=== PATIENT | female | born 1960 | race Caucasian/White ===

== ENCOUNTER 2023-05-01 15:12 | Outpatient (CLI) | payer BC, SELFPAY ==
--- NOTE | 2023-05-01 15:30 | CRLHL7_ITS ---
For Patients: As a result of the Century Cures Act, medical imaging exams and procedure reports are released immediately into your electronic medical record. You may view this report before your referring provider. If you have questions, please contact your health care provider. DXA BONE MINERAL DENSITY STUDY Reason for exam: Encounter for general adult medical examination. Current height (in): 65. Weight (lb): 175. Menopause age: 48. Ethnicity: White. 1. Have you had a previous hip or vertebral fracture? No. 2. Have you had any fractures during your adult life which did not result from significant trauma (e.g., auto accident)? No. 3. Did either of your parents have a hip fracture? No. 4. Do you smoke? No. 5. Have you ever taken Glucocorticoids? Yes. 6. Do you have rheumatoid arthritis? No. 7. Do you have secondary osteoporosis? No. 8. Do you drink 3 or more alcoholic drinks per day? No. 9. Are you being treated for osteoporosis? No. 10. Have you ever taken any of the following medications: Actonel, Evista, Fosamax, Miacalcin, Reclast, Boniva, Forteo, HRT (i.e., estrogen/hormone therapy), Protelos, Prolia, Vitamin D, Calcium, other ??? please specify. ANSWER: Yes, vitamin D and calcium. 11. Do you have any of the following medical conditions: Anorexia or bulimia, asthma or emphysema, end stage renal disease, hyperparathyroidism, any seizure disorders, cancer, inflammatory bowel diseases, hysterectomy, other ??? please specify. ANSWER: No. 12. What was your maximum height (inches)? 67. 13. Do you perform weight bearing exercise regularly? No. 14. Do you regularly consume dairy products? No. 15. Do you drink caffeinated beverages? Yes. If female: 16. At what age did your period start? 11. 17. Are you premenopausal? No. 18. How many full-term pregnancies have you had? 2. 19. Have you ever missed your period for more than 6 months in a row (not including or menopause)? No. TECHNIQUE: Bone mineral density study was performed using the [employer]. FINDINGS: The results of the study expressed as bone mineral density (BMD) are as follows: Lumbar spine L1 to L4: BMD: 1.225 g/cm2. T-score: 1.6. Z-score: 3.4 Neck Left: BMD: 0.965 g/cm2. T-score: 1.0. Z-score: 2.5 Right: BMD: 1.003 g/cm2. T-score: 1.4. Z-score: 2.9 Total Left: BMD: 1.188 g/cm2. T-score: 2.0. Z-score: 3.2 Right: BMD: 1.197 g/cm2. T-score: 2.1. Z-score: 3.3 IMPRESSION: Normal bone density. *Comparison exams done prior to 04/2020 were performed on different unit, SEVENROOMS. COMPARISON: Compared with scan of 10/13/2017, the bone mineral density has decreased by 0.4 percent at the spine and decreased by 0.5 percent at the hip. Brett Carroll M.D. Diagnostic Radiologist [email or web address] NATALIA/sherman whitaker/Dictated by: Brett Carroll MD @ 05/02/2023 6:50:00 AM (Electronically Signed)
== END 2023-05-01 15:13 | disposition home or self-care (01) ==
LOC: RAD 15:12
PROVIDERS: PCP Physician Assistant Medical; Visit Provider Physician Assistant Medical
DX: Z13.820 Encounter for screening for osteoporosis (principal); Z78.0 Asymptomatic menopausal state
CPT/HCPCS: 77080

== ENCOUNTER 2023-05-21 08:10 | Outpatient (CLI) | payer BC, SELFPAY ==
--- NOTE | 2023-05-21 08:15 | CRLHL7_ITS ---
For Patients: As a result of the Century Cures Act, medical imaging exams and procedure reports are released immediately into your electronic medical record. You may view this report before your referring provider. If you have questions, please contact your health care provider. BILATERAL SCREENING MAMMOGRAM WITH COMPUTER-AIDED DETECTION AND TOMOSYNTHESIS TECHNIQUE: CC and MLO views were obtained. These mammographic images have been obtained using full-field digital technique. These mammographic images were interpreted with the benefit of computer-aided detection. Breast tomosynthesis was used in this interpretation. COMPARISON FILM: 11/14/21, 07/07/20, 11/27/18. FINDINGS: The breasts are heterogeneously dense, which may obscure small masses. IMPRESSION: There is no radiographic evidence for malignancy. ASSESSMENT: BI-RADS Category 1: Negative RECOMMENDATION: Routine screening mammogram in 1 year. A lay language report of this examination will be provided to the patient. BRETT BARRIOS M.D. Diagnostic Radiologist [email or web address] NATALIA/lluvia Transcribed: 05/21/2023, 2:[address]/Dictated by: Brett Barrios MD @ 05/21/2023 9:32:00 AM (Electronically Signed)
== END 2023-05-21 08:11 | disposition home or self-care (01) ==
LOC: MAMMO 08:11
PROVIDERS: PCP Physician Assistant Medical; Visit Provider Physician Assistant Medical
DX: Z12.31 Encounter for screening mammogram for malignant neoplasm of breast (principal); R92.2 Inconclusive mammogram
CPT/HCPCS: 77063; 77067

== ENCOUNTER 2023-07-08 08:24 | Outpatient (CLI) | payer BC, SELFPAY ==
--- OUTSIDE RECORDS SUMMARY | 2023-07-10 09:36 | XMS_ITS | Continuity of Care Document ---
Author Name Unknown Organization [facility] Address [address] [place] [address] Phone Care Team Providers Care Commonwealth Attorney Name Role Phone Félix Kinney MD Unavailable Unavailable Allergies, Adverse Reactions, Alerts Substance Reaction Status Criticality Sulfa (Sulfonamide Antibiotics) Active No Information Penicillins Active No Information Medications Medication Instructions Dosage Effective Dates (start - stop) Status Comments lisinopril 20 mg-hydrochlorothiazi de 25 mg tablet take 1 Tablet by oral route every day 1 Tablet - Active escitalopram 20 mg tablet take 1 tablet by oral route every day 20 MG - Active bupropion HCl SR 200 mg tablet,12 hr sustained-release take 1 tablet by oral route every day 200 MG - Active metformin 500 mg tablet take 1 tablet by oral route 2 times every day with morning and evening meals 500 MG - Active atorvastatin 40 mg tablet take 1 tablet by oral route every day 40 MG - Active Vitamin D3 50 mcg (2,000 unit) capsule take 1 Capsule by Oral route once 1 Capsule - Active Fish Oil 1,200 mg (144 mg-216 mg) capsule - Active Aspirin Low Dose 81 mg tablet,delayed release take 1 tablet by oral route every day 81 MG - Active trazodone 50 mg tablet take 1 tablet by oral route every day after meals 50 MG - Active Basaglar KwikPen U-100 Insulin 100 unit/mL (3 mL) subcutaneous inject by subcutaneous route as per insulin protocol 0.00 - Active Multivitamin 50 Plus tablet spray 1 Tablet by Oral route every day 1 Tablet - Active Systane (PF) 0.4 %-0.3 % eye drops in a dropperette apply 1 Drop by Ophthalmic route in each eye every 2-3 hours 1 Drop - Active Systane Gel 0.3 % eye gel - Active FLOVENT HFA (unknown strength) inhale 1 puff by inhalation route 2 times every day Not Available - Active Problems Condition Type Effective Dates (start - stop) Clini rosie Status Comments No Known Problems Procedures Procedure Date Office/Outpatient Visit, New Routine Venipuncture Specimen Handling Rbc Sed Rate, Nonautomated CReactive Protein Antinuclear Antibodies Records Request Results Test Name Date and Time Measure Units Reference Range Abnormal Flag Status Comments Panel Description: CRP Final CRP 16:10:00 0.15 MG/DL 0.00-0.60 Final Panel Description: ESR Final ESR 16:17:00 30 mm/hr 0-25 H Final Panel Description: URINALYSIS REFLEX Final COLOR 07:30:00 YELLOW YELLOW N Final APPEARANCE 07:30:00 CLEAR CLEAR N Final SPECIFIC GRAVITY 07:30:00 1.008 1.001-1.035 N Final PH 07:30:00 < OR = 5.0 5.0-8.0 N Final GLUCOSE 07:30:00 NEGATIVE NEGATIVE N Final BILIRUBIN 07:30:00 NEGATIVE NEGATIVE N Final KETONES 07:30:00 NEGATIVE NEGATIVE N Final OCCULT BLOOD 07:30:00 NEGATIVE NEGATIVE N Final PROTEIN 07:30:00 NEGATIVE NEGATIVE N Final NITRITE 07:30:00 NEGATIVE NEGATIVE N Final LEUKOCYTE ESTERASE 07:30:00 TRACE NEGATIVE A Final WBC 07:30:00 NONE SEEN /HPF < OR = 5 N Final RBC 07:30:00 NONE SEEN /HPF < OR = 2 N Final SQUAMOUS EPITHELIAL CELLS 07:30:00 NONE SEEN /HPF < OR = 5 N Final BACTERIA 07:30:00 NONE SEEN /HPF NONE SEEN N Final HYALINE CAST 07:30:00 NONE SEEN /LPF NONE SEEN N Final Panel Description: SOUTH Screen Final SOUTH SCR A 13:36:00 4.0 U/mL 0.0-10.0 Final SOUTH SCR B 13:36:00 1.0 U/mL 0.0-10.0 N Final Advance Directives Directive Yes / No Effective Date File Name No Information Encounters Encounter Description Practice Location Reason(s) For Visit Diagnoses Date Provider Providers Copied on Encounter Office/Outpa tient Visit, [facility], [address], [place], [address], [place] tel:[phone] [facility] , Facial rash (chief complaint) Elevated ESR (chief complaint) Pain in jointRash and other nonspecific skin eruption 1 Gregoria Heard. [facility] [address], [place], [address], [place]. tel:[phone] Referring Provider: Félix Vivar, [facility] [address], [place], [address]. tel:[phone] [facility], [address], [place], [address], [place] tel:[phone] [facility] , No Information 1 Gregoria Heard. [facility] [address], [place], [address], [place]. tel:[phone] Referring Provider: Félix Vivar, [facility] [address], [place], [address]. tel:[phone] Family History Family Member Type Diagnosis Age At Onset Niece Problem colitis Mother Problem Polymyalgia rheumatica Father Problem Arthritis Payers Payer name Insurance type Covered libertarian ID Ranjan ba(s) [facility] [id number] Social History Type Description Quantity Date Captured Comments Alcohol Use Details Unknown Caffeine Use Details Unknown Tobacco Use Status Current non-smoker 19 Smoking Status Never smoker Non-Smoking Tobacco Use Details : No Details Available : No Details Available Sex Female Vital Signs Date / Time: Height Weight BMI Pulse Rate Blood Pressure Temperature Respiratory Rate Body Surface Area Head Circumference Head Circ. Percentile Wt./Zack. Percentile BMI percentile Pulse Ox Inhaled Ox 2:02 PM 65.75 in 82.735 kg (182.40 lbs) 29.6 7 kg/m eter (2) 124/78 mm[Hg] 98.10 F Chief Complaint And Reason For Visit From encounter dated '03/12/2021 14:00'. Facial rash (chief complaint) Elevated ESR (chief complaint) Reason For Referral Reason For Referral No Information History Of Present Illness Encounter Date Complaint History Of Prese nt Illness Facial rash Elevated ESR Functional Status Date Functional Assessmen t Pain Score 3/10 Instructions Date Instruction Additional Infor majo Pursue dermatology evaluation. R elated to Rash and other nonspecific skin eruption Continue as needed u alejo of OTC ibuprofen. Appropriate dosing strategies were discussed. Related to Pain in joint Assessments Type Assessment Date assessment Pain in joint assessment Rash and other nonspecific skin eruption impression The patient has arth ralgias with findings of overall mild osteoarthritis of the hands. Occasionally, patient has achiness of the fingers/hands which persists through much of the morning raising consideration for a mild inflammatory component. The patient finds that occasional usage of ibuprofen 200 mg is quite effective for such discomforts. The patient's recent laboratory studies demonstrated mildly elevated ESR, with negative rheumatoid factor, SOUTH and Lyme screen. impression The patient's facial rash is of uncertain etiology, but is not strongly suggestive of lupus. The patient's recent SOUTH screen was negative and the patient does not have other strong features of an evolving collagen vascular disorder. Mental Status Date Cognitive Assessment Orientation - [place] ed to time, place, person, situation. Patient Care Teams Name Effective Dates (start - stop) Status Members No Information
== END 2023-07-08 08:25 | disposition home or self-care (01) ==
LOC: NFLDREF 07-10 09:33
PROVIDERS: PCP Physician Assistant Medical; Referring Provider Physician Assistant Medical; Visit Provider Physician Assistant Medical
DX: E78.5 Hyperlipidemia, unspecified (principal); E11.9 Type 2 diabetes mellitus without complications; I10 Essential (primary) hypertension; E66.9 Obesity, unspecified
CPT/HCPCS: 80061; 80076

== ENCOUNTER 2024-06-30 08:43 | Outpatient (CLI) | payer BC, SELFPAY ==
--- OUTSIDE RECORDS SUMMARY | 2024-06-30 13:38 | XMS_ITS | Clinical Summary ---
Author Organization [facility] Address [place], [place] [address] Care Team Providers Care Regulatory Consultant Name Role Phone Karin Lucas MD Primary Care Provider + Allergies Active Allergy Reactions Criticality Noted Date Comments Amoxicillin Rash 01/28/2007 Sulfa (Sulfonamide Antibiotics) Anxiety 05/2007 Medications Medication Sig Dispensed Refills Start Date End Date Status ASPIRIN ORAL None Entered 0 Active multivitamin (MULTIPLE VITAMINS) tablet Take 1 tablet by mouth once daily. 0 07/21/2014 Active cholecalciferol (VITAMIN D) 1,000 unit tablet Take 1 tablet by mouth once daily. 0 07/21/2014 Active sitaGLIPtin (JANUVIA) 100 mg tabletIndications:Mary betes mellitus without complication (HC) Take 1 tablet by mouth once daily. 90 tablet 3 09/14/2015 Active albuterol HFA (PRO-AIR,VENTOLIN,PRO VENTIL) 90 mcg/actuation inhalerIndications:UR I (upper respiratory infection) Inhale 2 Puffs by mouth 4 times daily if needed. 1 Inhaler 0 09/14/2015 Active lancets (SOFT TOUCH LANCETS)Indications:T ype 2 diabetes mellitus without complication (HC) Dispense item covered by pt ins. 250.00 type II - Test 2 times/day. Reason: Unstable diabetes 200 Each PRN 09/14/2015 Active mometasone (NASONEX) (50 mcg each actuation) nasal sprayIndications:URI (upper respiratory infection) Inhale 2 Sprays into both nostrils once daily. Will call for refill 1 canister PRN 09/14/2015 Active blood sugar diagnostic (ONETOUCH ULTRA TEST) stripIndications:Diab etes mellitus without complication (HC) TEST DAILY INSTRUCTED BY . Dispense brand covered by insurance. 100 Each 3 01/29/2017 Active atorvastatin (LIPITOR) 40 mg tabletIndications:Mix ed hyperlipidemia Take 0.5 tablets by mouth at bedtime. 135 tablet 3 01/26/2019 Active PARoxetine (PAXIL) 20 mg tabletIndications:Dys thymic disorder Take 0.5 tablets by mouth once daily. 90 tablet 3 01/26/2019 Active lisinopril (PRINIVIL; ZESTRIL) 20 mg tabletIndications:Ess ential hypertension Take 1.5 tablets by mouth once daily. 90 tablet 3 01/26/2019 Active metFORMIN (GLUCOPHAGE XR) 500 mg Extended-Release tabletIndications:Mary betes mellitus without complication (HC) Take 1 tablet by mouth 2 times daily with meals. 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 Cervical radicular pain 11/09/2015 DDD (degenerative disc disease), cervical 2014 Facet joint disease of cervical region 5 Rosacea 01/23/2012 Dysthymic disorder 03/18/2008 Mixed hyperlipidemia 01/28/2007 Rosacea 01/28/2007 DIABETES TYPE II WITHOUT COMPLICATIONS OR UNSPEC IFIED 12/01/2003 Resolved Problems Problem Noted Date Diagnosed Date Resolved Date Diabetes mellitus without complication 01/28/2007 11/09/2015 Depressive disorder, not elsewhere classified 01/29/20 07 03/18/2008 Immunizations Name Administration Dates Next Due HepA-HepB (Twinrix) 07/09/2013,10/03/2008,2007 Influenza, IIV3 (Age >=3 years) 09/12/2011,09/14 Influenza, IIV4 09/14/2015,07/21/2014 Td (Age >=7 Years) 09/30/1999 Tdap 12/01/2008 Tuberculin (PPD) 08/26/2000 Typhoid (injectable) 04/14/2015 Yellow Fever 05/12/2008 Family History Medical History Relation Name Comments Diabetes Father type II Heart Disease Father Hyperlipidemia Father Hypertension Father Psychiatric illness Father depressi on Asthma Mother Heart Disease Mother triple bypass, CHF, CKD Hyperlipidemia Mother Hypertension Mother Psychiatric illness Mother depressi on Osteoporosis Other family members Cancer-breast No Family History Relation Name Status Comments Father Mother (Age 86) COPD compl ications Other Social History Tobacco Use Types Packs/Day Years Used Date Smoking Tobacco: Never Smokeless Tobacco: Never Tobacco Cessation:Counseling Given: Yes Alcohol Use Standard Drinks/Week Comments Yes 0 (1 standard drink = 0.6 oz pur e alcohol) occ Sex and Gender Information Value Date Recorded Sex Assigned at Not on file Gender Identity Not on file Sexual Orientation Not on file Obstetrics History Para Term AB IAB SAB Ectopic Multiple Livin g Live Births 2 2 Date Outcome GA Total Labor Labor/2nd/3rd Weight Sex Type Anes PTL Teodora A1 A5 Name Clin Last Filed Vital Signs Vital Sign Reading Time Taken Comments Blood Pressure 136/77 01/18/2020 3:56 PM CRIMPER OPERATOR Pulse 79 01/18/2020 3:56 PM CRIMPER OPERATOR Temperature 36.7 ??C (98 ??F) 03/04/2016 12:09 PM CDT Respiratory Rate - - Oxygen Saturation 97% 01/18/2020 3:56 PM CRIMPER OPERATOR Inhaled Oxygen Concentration - - Weight 83.9 kg (185 lb) 10/20/2019 8:36 AM CRIMPER OPERATOR Height 166 cm (5' 5.35) 03/04/2016 12:09 PM CDT Body Mass Index 30.45 03/04/2016 12:09 PM CDT Plan of Treatment Health Maintenance Due Date Last Done Comments Depression screening for age 12+ 1970 Hepatitis C screening for ag e 18-79 1976 Zoster (shingles) series for age 50+ (1 of 2) 2008 Colonoscopy through age 75 02/05/2016 02/04/2006 Mammogram for age 45-75 09/14/2016 09/14/20 15, 07/21/2014, 07/20/2013, Additional history exists BMI (ht and wt on same day) for age 18+ 03/04/2017 03/04/2016, 12/21/2015 Tetanus booster 12/01/2018 12/01/2008, 09/30/1999 Lipids for age 45-75 09/13/2020 09/13/2015, 02/15/2015, 07/21/2014, Additional history exists DEXA/DXA scan for age 65+ 2023 07/02/2012 Pneumococcal series for age 65+ (1 of 1 - PCV) 2023 COVID-19 vaccine series ( - 2022-24 season) 2023 Influenza for age 65+ 07/25/2024 09/14/2015 , 07/21/2014, 09/12/2011, Additional history exists Tdap Completed 12/01/2008 Procedures Procedure Name Priority Date/Time Associated Diagnosis Comments XR MAMMO BILAT SCREEN FFDM (IA) Routine 09/14/2015 10:15 AM CDT Other screening mammogram LIPID PANEL W REFLEX MEASURED LDL Routine 09/13/2015 8:40 AM CDT HYPERLIPIDEMIA MIXED XR DXA BONE DENSITY 2 SITES AXIAL Routine 07/02/2012 8:45 AM CDT Screening for osteoporosis from Last 3 Months or Most Recently Relevant to Health Maintenance Results * XR MAMMO BILAT SCREEN FFDM (09/14/2015 10:15 AM CDT) Anatomical Region Laterality Modality BREASTS, Breast Left, Breast Right Bilateral Mammography Impressions 09/14/2015 4:43 PM CDT ??There is no radiographic evidence for malignancy. ??Recommend annual mammograms. A lay language report of this examination will be provided to the patient. MAMMOGRAM ASSESSMENT: ??ACR 2 Benign Narrative 09/14/2015 4:43 PM CDT XR MAMMO BILAT SCREEN FFDM [G0202.0] CLINICAL HISTORY: ??This is an asymptomatic 55 y.o. patient. INDICATION FOR EXAM: Mammogram Screening. TECHNIQUE: CC & MLO views were obtained. ??This digital study was evaluated with the assistance of Computer-Aided Detection. COMPARISON FILMS: Yes 07/21/14 [facility] 07/20/13 [facility] FINDINGS: ??Mammographically, the breast tissue is heterogeneously dense, which could obscure detection of small masses. ??No suspicious masses or microcalcifications. ??Benign appearing calcifications within both breasts. Dimple Palacio [facility] MAMMO * (ABNORMAL) LIPID PANEL W REFLEX MEASURED LDL (09/13/2015 8:40 AM CDT) CHOLESTEROL,TOTAL 200(H) 100 - 199 mg/dL 09/13/2015 9:05 AM CDT [facility] TRIGLYCERIDES 167(H) <150 mg/dL 09/13/2015 9:05 AM CDT [facility] HDL CHOLESTEROL 49 >40 mg/dL 09/13/2015 9:05 AM CDT [facility] NON-HDL CHOLESTEROL 151(H) <145 mg/dl 09/13/2015 9:05 AM CDT [facility] CHOL/HDL RATIO 4.08 <4.50 09/13/2015 9:05 AM CDT [facility] LDL CHOLESTEROL 118 <=130 mg/dL 09/13/2015 9:05 AM CDT [facility] PATIENT STATUS FASTING 09/13/2015 9:05 AM CDT [facility] Blood specimen (specimen) BLOOD SPECIMEN / Unknown Venipuncture / Unknown 09/13/2015 8:40 AM CDT 09/13/2015 8:40 AM CDT Dimple Palacio NP CHEMISTRY [facility] [address] [place] [address], * XR DEXA BONE DENSITY 2 SITES (07/02/2012 8:45 AM CDT) Anatomical Region Laterality Modality Spine, HIPS, HIPL, HIPR Other Narrative 07/04/2012 1:57 PM CDT Please see scanned document for results of this study. Procedure Note Maribell Leone PA - 07/04/2012 Please see scanned document for results of this study. Dimple Palacio NP DEXA from Last 3 Months or Most Recently Relevant to Health Maintenance Care Teams Regulatory Consultant Relationship Specialty Start Date End Date Karin Lucas MD [address] [place] [address] PCP - General Family Practice 10/29/16
--- OUTSIDE RECORDS SUMMARY | 2024-06-30 13:38 | XMS_ITS | Continuity of Care Document ---
Author Organization [facility] Address [address] [place] [address] Phone Care Team Providers Care Whizzer Operator Name Role Phone Félix Kinney MD Unavailable [...] [facility], [address], [place], [address], [place] tel:[phone] [facility] , Facial rash (chief complaint) Elevated ESR (chief complaint) Pain in jointRash and other nonspecific skin eruption 1 Gregoria Heard. [facility] [address], [place], [address], [place]. tel:[phone] Referring Provider: Félix Vivar, [facility] [address], [place], [address]. tel:[phone] [facility], [address], [place], [address], [place] tel:[phone] [facility] , No Information 1 Gregoria Heard. [facility] [address], [place], [address], [place]. tel:[phone] Referring Provider: Félix Vivar, [facility] [address], [place], [address]. tel:[phone] Family History Family Member Type Diagnosis Age At Onset Niece Problem colitis Mother Problem Polymyalgia rheumatica Father Problem Arthritis Payers Payer name Insurance type Covered constitution party ID Authoravnia mejia(s) [facility] [id number] Social History Type Description Quantity Date Captured [...] features of an evolving collagen vascular disorder. Apr-19-2021 Mental Status Date Cognitive Assessment Orientation - [place] ed to time, place, person, situation. Patient Care Teams Name Effective Dates (start - stop) Status Members No Information
== END 2024-06-30 08:44 | disposition home or self-care (01) ==
LOC: LKVREF 13:36
PROVIDERS: PCP Physician Assistant Medical; Referring Provider Physician Assistant Medical; Visit Provider Physician Assistant Medical
DX: Z00.00 Encounter for general adult medical examination without abnormal findings (principal); E78.5 Hyperlipidemia, unspecified; E11.9 Type 2 diabetes mellitus without complications
CPT/HCPCS: 80053; 80061; 82043; 82570; 82607; 84443

== ENCOUNTER 2024-07-01 13:47 | Outpatient (CLI) | payer BC, SELFPAY ==
--- OUTSIDE RECORDS SUMMARY | 2024-07-07 09:50 | XMS_ITS | Continuity of Care Document ---
Author Organization [facility] Address [address] [place] [address] Phone Care Team Providers Care Therapy Director Name Role Phone Félix Kinney MD Unavailable Unavailable Allergies, Adverse Reactions, Alerts Substance Reaction Status Criticality Sulfa (Sulfonamide Antibiotics) Active No Information Penicillins Active No Information Medications Medication Instructions Dosage Effective Dates (start - stop) Status Comments FLOVENT HFA (unknown strength) inhale 1 puff by inhalation route 2 times every day Not Available - Active Systane Gel 0.3 % eye gel - Active Systane (PF) 0.4 %-0.3 % eye drops in a dropperette apply 1 Drop by Ophthalmic route in each eye every 2-3 hours 1 Drop - Active Multivitamin 50 Plus tablet spray 1 Tablet by Oral route every day 1 Tablet - Active Basaglar KwikPen U-100 Insulin 100 unit/mL (3 mL) subcutaneous inject by subcutaneous route as per insulin protocol 0.00 - Active trazodone 50 mg tablet take 1 tablet by oral route every day after meals 50 MG - Active Aspirin Low Dose 81 mg tablet,delayed release take 1 tablet by oral route every day 81 MG - Active Fish Oil 1,200 mg (144 mg-216 mg) capsule - Active Vitamin D3 50 mcg (2,000 unit) capsule take 1 Capsule by Oral route once 1 Capsule - Active atorvastatin 40 mg tablet take 1 tablet by oral route every day 40 MG - Active metformin 500 mg tablet take 1 tablet by oral route 2 times every day with morning and evening meals 500 MG - Active bupropion HCl SR 200 mg tablet,12 hr sustained-release take 1 tablet by oral route every day 200 MG - Active escitalopram 20 mg tablet take 1 tablet by oral route every day 20 MG - Active lisinopril 20 mg-hydrochlorothiazi de 25 mg tablet take 1 Tablet by oral route every day 1 Tablet - Active Problems Condition Type Effective Dates [...] [facility], [address], [place], [address], [place] tel:[phone] [facility] , Facial rash (chief complaint) Elevated ESR (chief complaint) Pain in jointRash and other nonspecific skin eruption 1 Gregoria Heard. [facility] [address], [place], [address], [place]. tel:[phone] Referring Provider: Félix Vivar, [facility] [address], [place], [address]. tel:[phone] [facility], [address], [place], [address], [place] tel:[phone] [facility] , No Information 1 Gregoria Heard. [facility] [address], [place], [address], [place]. tel:[phone] Referring Provider: Félix Vivar, [facility] [address], [place], [address]. tel:[phone] Family History Family Member Type Diagnosis Age At Onset Niece Problem colitis Mother Problem Polymyalgia rheumatica Father Problem Arthritis Payers Payer name Insurance type Covered republican ID Authoravnia mejia(s) [facility] [id number] Social History Type Description Quantity Date Captured [...] Mental Status Date Cognitive Assessment Orientation - Morton ed to time, place, person, situation. Patient Care Teams Name Effective Dates (start - stop) Status Members No Information
--- OUTSIDE RECORDS SUMMARY | 2024-07-07 09:50 | XMS_ITS | Clinical Summary ---
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 COMPARISON FILMS: Yes 07/21/14 [facility] 07/20/13 [facility] FINDINGS: ??Mammographically, the breast tissue is heterogeneously dense, which could obscure detection of small masses. ??No suspicious masses or microcalcifications. ??Benign appearing calcifications within both breasts. Dimple Palacio AMMONIA TECHNICIAN MAMMO * (ABNORMAL) LIPID PANEL W REFLEX MEASURED LDL (09/13/2015 8:40 AM CDT) CHOLESTEROL,TOTAL 200(H) 100 - 199 mg/dL 09/13/2015 9:05 AM CDT [facility] TRIGLYCERIDES 167(H) <150 mg/dL 09/13/2015 9:05 AM CDT [facility] HDL CHOLESTEROL 49 >40 mg/dL 09/13/2015 9:05 AM CDT [facility] NON-HDL CHOLESTEROL 151(H) <145 mg/dl 09/13/2015 9:05 AM CDT [facility] CHOL/HDL RATIO 4.08 <4.50 09/13/2015 9:05 AM CDT [facility] LDL CHOLESTEROL 118 <=130 mg/dL 09/13/2015 9:05 AM CDT [facility] PATIENT STATUS FASTING 09/13/2015 9:05 AM CDT [facility] Blood specimen (specimen) BLOOD SPECIMEN / Unknown Venipuncture / Unknown 09/13/2015 8:40 AM CDT 09/13/2015 8:40 AM CDT Dimple Palacio NP CHEMISTRY [facility] [address] [place] [address], * XR DEXA BONE DENSITY 2 SITES [...] Recently Relevant to Health Maintenance Care Teams Dye Colorist Dyer Relationship Specialty Start Date End Date Karin Lucas MD [address] [place] [address] PCP - General Family Practice 10/29/16
== END 2024-07-01 13:48 | disposition home or self-care (01) ==
LOC: NFLDREF 07-07 09:49
PROVIDERS: PCP Physician Assistant Medical; Referring Provider Physician Assistant Medical; Visit Provider Physician Assistant Medical
DX: E11.65 Type 2 diabetes mellitus with hyperglycemia (principal); Z79.4 Long term (current) use of insulin; Z79.84 Long term (current) use of oral hypoglycemic drugs
CPT/HCPCS: 82043; 82570

== ENCOUNTER 2024-10-06 15:15 | Outpatient (CLI) | payer BC, SELFPAY ==
--- OUTSIDE RECORDS SUMMARY | 2024-10-06 15:18 | XMS_ITS | Clinical Summary ---
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 Pulse 79 01/18/2020 3:56 PM ARTIFICIAL LIMB MAKER Temperature 36.7 ??C (98 ??F) 03/04/2016 12:09 PM CDT Respiratory Rate - - Oxygen Saturation 97% 01/18/2020 3:56 PM ARTIFICIAL LIMB MAKER Inhaled Oxygen Concentration - - Weight 83.9 kg (185 lb) 10/20/2019 8:36 AM ARTIFICIAL LIMB MAKER Height 166 cm (5' 5.35) 03/04/2016 12:09 [...] 1 - PCV) 2023 COVID-19 vaccine series (2023-25 season) 2024 Influenza for age 65+ 07/25/2024 09/14/2015 , [...] [facility] 07/20/13 [facility] FINDINGS: ??Mammographically, the breast tissue is heterogeneously dense, which could obscure detection of small masses. ??No suspicious masses or microcalcifications. ??Benign appearing calcifications within both breasts. Dimple Palacio MEDICAL ASSISTANT MAMMO * (ABNORMAL) LIPID PANEL W REFLEX MEASURED LDL (09/13/2015 8:40 AM CDT) CHOLESTEROL,TOTAL 200(H) 100 - 199 mg/dL 09/13/2015 9:05 AM CDT [facility] TRIGLYCERIDES 167(H) <150 mg/dL 09/13/2015 9:05 AM CDT [facility] HDL CHOLESTEROL 49 >40 mg/dL 09/13/2015 9:05 AM CDT [facility] NON-HDL CHOLESTEROL 151(H) <145 mg/dl 09/13/2015 9:05 AM CDT [facility] CHOL/HDL RATIO 4.08 <4.50 09/13/2015 9:05 AM CDT [facility] LDL CHOLESTEROL 118 <=130 mg/dL 09/13/2015 9:05 AM CDT [facility] PATIENT STATUS FASTING 09/13/2015 9:05 AM CDT [facility] Blood specimen (specimen) BLOOD SPECIMEN / Unknown Venipuncture / Unknown 09/13/2015 8:40 AM CDT 09/13/2015 8:40 AM CDT Dimple Palacio NP CHEMISTRY [facility] [address] [place] [address], * XR DEXA BONE DENSITY 2 SITES [...] Recently Relevant to Health Maintenance Care Teams Parcel Post Weigher Relationship Specialty Start Date End Date Karin Lucas MD [address] [place] [address] PCP - General Family Practice 10/29/16
--- OUTSIDE RECORDS SUMMARY | 2024-10-06 15:18 | XMS_ITS | Continuity of Care Document ---
Author Organization [facility] Address [address] [place] [address] Phone Care Team Providers Care Bounty Trapper Name Role Phone Félix Kinney MD Unavailable [...] [facility], [address], [place], [address], [place] tel:[phone] [facility] , Facial rash (chief complaint) Elevated ESR (chief complaint) Pain in jointRash and other nonspecific skin eruption 1 Gregoria Heard. [facility] [address], [place], [address], [place]. tel:[phone] Referring Provider: Félix Vivar, [facility] [address], [place], [address]. tel:[phone] [facility], [address], [place], [address], [place] tel:[phone] [facility] , No Information 1 Gregoria Heard. [facility] [address], [place], [address], [place]. tel:[phone] Referring Provider: Félix Vivar, [facility] [address], [place], [address]. tel:[phone] Family History Family Member Type Diagnosis Age At Onset Niece Problem colitis Mother Problem Polymyalgia rheumatica Father Problem Arthritis Payers Payer name Insurance type Covered libertarian ID Authoravnia mejia(s) [facility] [id number] Social History Type Description Quantity Date Captured [...] Mental Status Date Cognitive Assessment Orientation - Armstrong ed to time, place, person, situation. Patient Care Teams Name Effective Dates (start - stop) Status Members No Information
--- NOTE | 2024-10-06 15:20 | CRLHL7_ITS ---
For Patients: As a result of the Century Cures Act, medical imaging exams and procedure reports are released immediately into your electronic medical record. You may view this report before your referring provider. If you have questions, please contact your health care provider. BILATERAL SCREENING MAMMOGRAM WITH COMPUTER-AIDED DETECTION AND TOMOSYNTHESIS TECHNIQUE: CC and MLO views were obtained. These mammographic images have been obtained using full-field digital technique. These mammographic images were interpreted with the benefit of computer-aided detection. Breast Tomosynthesis was used in this interpretation. COMPARISON FILM: 05/21/23, 11/14/21, 07/07/20. FINDINGS: The breasts are heterogeneously dense, which may obscure small masses IMPRESSION: There is no radiographic evidence for malignancy. ASSESSMENT: BI-RADS Category 1: Negative RECOMMENDATION: Routine screening mammogram in 1 year. A lay language report of this examination will be provided to the patient. Brett Carroll M.D. Diagnostic Radiologist [email or web address] NATALIA/melody / bM/Dictated by: Brett Carroll MD @ 10/08/2024 11:46:00 AM (Electronically Signed)
== END 2024-10-06 15:16 | disposition home or self-care (01) ==
LOC: MAMMO 15:16
PROVIDERS: PCP Physician Assistant Medical; Visit Provider Physician Assistant Medical
DX: Z12.31 Encounter for screening mammogram for malignant neoplasm of breast (principal); R92.333 Mammographic heterogeneous density, bilateral breasts
CPT/HCPCS: 77063; 77067

== ENCOUNTER 2025-01-27 10:26 | Outpatient (CLI) | payer BC, SELFPAY | END 2025-01-27 10:27 | disposition home or self-care (01) | LOC: LKVREF 10:27 | PROVIDERS: PCP Physician Assistant Medical; Visit Provider Physician Assistant Medical | DX: E78.5 Hyperlipidemia, unspecified (principal); E11.9 Type 2 diabetes mellitus without complications | CPT/HCPCS: 80061 ==

== ENCOUNTER 2025-09-05 08:10 | Outpatient (CLI) | payer BC, SELFPAY | END 2025-09-05 08:11 | disposition home or self-care (01) | PROVIDERS: PCP Physician Assistant Medical; Visit Provider Physician Assistant Medical | DX: Z00.00 Encounter for general adult medical examination without abnormal findings (principal); E11.9 Type 2 diabetes mellitus without complications; E55.9 Vitamin D deficiency, unspecified | CPT/HCPCS: 80053; 80061; 82043; 82306; 82570; 82607; 84443 ==

== ENCOUNTER 2025-10-05 12:49 | Outpatient (CLI) | payer BC, SELFPAY ==
--- NOTE | 2025-10-05 13:00 | CRLHL7_ITS ---
For Patients: As a result of the Century Cures Act, medical imaging exams and procedure reports are released immediately into your electronic medical record. You may view this report before your referring provider. If you have questions, please contact your health care provider. XR DXA Bone Mineral Density (BMD) Reason for exam: Screening. Current height (inches): 65.0 Weight (lbs.): 157.0 Menopause age: 48 Ethnicity: White 1. Have you had a previous hip or vertebral fracture? No. 2. Have you had any fractures during your adult life which did not result from significant trauma (e.g., auto accident)? No. 3. Did either of your parents have a hip fracture? No. 4. Do you smoke? No. 5. Have you ever taken Glucocorticoids? Yes. 6. Do you have rheumatoid arthritis? No. 7. Do you have secondary osteoporosis? No. 8. Do you drink 3 or more alcoholic drinks per day? No. 9. Are you being treated for osteoporosis? No. 10. Have you ever taken any of the following medications: Actonel, Evista, Fosamax, Miacalcin, Reclast, Boniva, Forteo, HRT (i.e., estrogen/hormone therapy), Protelos, Prolia, Vitamin D, Calcium, other ??? please specify. ANSWER: Yes; vitamin D and calcium. 11. Do you have any of the following medical conditions: Anorexia or bulimia, asthma or emphysema, end stage renal disease, hyperparathyroidism, any seizure disorders, cancer, inflammatory bowel diseases, hysterectomy, other ??? please specify. ANSWER: Other: reactive airway disease. 12. What was your maximum height (inches)? 67. 13. Do you perform weightbearing exercise regularly? Yes. 14. Do you regularly consume dairy products? Yes. 15. Do you drink caffeinated beverages? Yes. 16. At what age did your period start? 11. 17. Are you premenopausal? No. 18. How many full-term pregnancies have you had? 2. 19. Have you ever missed your period for more than 6 months in a row (not including or menopause)? No. TECHNIQUE: Bone mineral density study was performed using the [employer]. FINDINGS: The results of the study expressed as bone mineral density (BMD) are as follows: Lumbar Spine L1 to L4: BMD: 1.224 g/cm2. T-score: 1.6. Z-score: 3.5. Neck Left: BMD: 0.927 g/cm2. T-score: 0.7. Z-score: 2.3. Right: BMD: 0.898 g/cm2. T-score: 0.4. Z-score: 2.1. Total Left: BMD: 1.181 g/cm2. T-score: 2.0. Z-score: 3.3. Right: BMD: 1.156 g/cm2. T-score: 1.8. Z-score: 3.1. IMPRESSION: Normal bone density. COMPARISON: Compared with scan of 05/01/2023, the bone mineral density has decreased by 0.1% at the spine and decreased by 2.0% at the hip. Compared with scan of 10/13/2017, the bone mineral density has decreased by 0.4% at the spine and decreased by 0.5% at the hip. *Comparison exams done prior to 04/2020 were performed on different unit, [employer]. BRETT BARRIOS M.D. Diagnostic Radiologist [email or web address] Transcribed: 1:[address]/Dictated by: Brett Barrios MD @ 10/06/2025 8:00:00 AM (Electronically Signed)
== END 2025-10-05 12:50 | disposition home or self-care (01) ==
LOC: RAD 12:50
PROVIDERS: PCP Physician Assistant Medical; Visit Provider Physician Assistant Medical
DX: Z13.820 Encounter for screening for osteoporosis (principal); E53.8 Deficiency of other specified B group vitamins
CPT/HCPCS: 77080

== ENCOUNTER 2025-10-05 15:43 | Outpatient (CLI) | payer BC, SELFPAY | END 2025-10-05 15:44 | disposition home or self-care (01) | PROVIDERS: PCP Physician Assistant Medical; Visit Provider Physician Assistant Medical | DX: E53.8 Deficiency of other specified B group vitamins (principal) | CPT/HCPCS: 82607 ==

== ENCOUNTER 2025-11-15 18:33 | Outpatient (CLI) | payer BC, SELFPAY ==
--- NOTE | 2025-11-15 18:40 | CRLHL7_ITS ---
For Patients: As a result of the Century Cures Act, medical imaging exams and procedure reports are released immediately into your electronic medical record. You may view this report before your referring provider. If you have questions, please contact your health care provider. INDICATION: BILATERAL SCREENING MAMMOGRAM, ASYMPTOMATIC 65 Y/O FEMALE COMPARISON: 10/06/2024, 05/21/2023, 11/14/2021 TECHNIQUE: Digital mammogram in CC and MLO projections including computer-aided detection (CAD) and tomosynthesis. BREAST COMPOSITION: There are scattered areas of fibroglandular density. FINDINGS: No suspicious findings. ASSESSMENT: BI-RADS 1 Negative RECOMMENDATION: Annual screening mammogram. A lay language report of this examination will be provided to the patient. Dictated by: Tiki Rodriguez MD @ 11/17/2025 07:45:20 (Electronically Signed)
== END 2025-11-15 18:34 | disposition home or self-care (01) ==
LOC: MAMMO 18:33
PROVIDERS: PCP Physician Assistant Medical; Visit Provider Physician Assistant Medical
DX: Z12.31 Encounter for screening mammogram for malignant neoplasm of breast (principal)
CPT/HCPCS: 77063; 77067